=== PATIENT | female | born 1930 | race Caucasian/White ===

== ENCOUNTER 2020-07-25 23:56 | Emergency (ER) | payer OTHER ==
[2020-07-26 00:19] VITALS: BP 155/73; PULSE 72; TEMP 98.4; BMI 15.7
[2020-07-26] MEDS ORDERED: KETOROLAC TROMETHAMINE 30 MG/1 ML VIAL IVPUSH ONE (01:19)
[2020-07-26] MEDS ORDERED: KETOROLAC TROMETHAMINE 30 MG/1 ML VIAL ONE (01:20)
[2020-07-26 01:52] LABS: BASO % 0.8 % (0-2.0); EOS % 2.9 % (0-4.5); HEMATOCRIT 37.6 % (32.4-45.2); HEMOGLOBIN 12.4 GM/dL (10.7-15.3); MCH 29.9 pg (25.7-33.7); MEAN CELL VOLUME 90.7 fl (80-96); MEAN PLT VOLUME 11.3 fl (7.5-11.1); MONO % 15.3 % (3.8-10.2); PLATELET COUNT 132 K/MM3 (134-434); RBC 4.14 M/mm3 (3.60-5.2); RDW 14.7 % (11.6-15.6); WHITE BLOOD COUNT 4.7 K/mm3 (4.0-10.0)
[2020-07-26 01:57] LABS: EPI CELLS >36 /uL (0-25.1); HYALINE CASTS 0 /uL (0-3.1); URINE APPEARANCE Error; URINE BACTERIA 137 /uL (0-1359); URINE BILIRUBIN NEGATIVE (NEGATIVE); URINE COLOR YELLOW; URINE GLUCOSE (UA) NEGATIVE (NEGATIVE); URINE KETONE NEGATIVE (NEGATIVE); URINE LEUK ESTERASE 1+ (NEGATIVE); URINE NITRITE NEGATIVE (NEGATIVE); URINE PROTEIN NEGATIVE (NEGATIVE); URINE RBC 5 /uL (0-23.9); URINE WBC 39 /uL (0-25.8)
[2020-07-26 02:02] LABS: CHLORIDE 109 mmol/L (98-107); SODIUM 142 mmol/L (136-145)
[2020-07-26 02:04] LABS: CALCIUM 9.5 mg/dL (8.5-10.1)
[2020-07-26 02:06] LABS: ALBUMIN 3.2 g/dl (3.4-5.0); ANION GAP 7 MMOL/L (8-16); CO2 26 mmol/L (21-32); GLUCOSE,RANDOM 101 mg/dL (74-106); LIPASE 256 U/L (73-393)
[2020-07-26 02:09] LABS: BILIRUBIN,TOTAL 0.3 mg/dL (0.2-1); SGOT/AST 31 U/L (15-37); SGPT/ALT 38 U/L (13-61); TOT PROT 6.3 g/dl (6.4-8.2)
[2020-07-26 02:11] LABS: ALK PHOS 55 U/L (45-117)
[2020-07-26] MEDS ORDERED: NITROFURANTOIN MACROCRYSTAL 50 MG CAPSULE (FP) ONE (03:14)
[2020-07-26] MEDS ORDERED: NITROFURANTOIN MACROCRYSTAL 50 MG CAPSULE (FP) PO SCH (03:15)
== END 2020-07-26 08:02 | disposition home or self-care (01) ==
LOC: FER 23:56
PROC: 3E0333Z Introduction of Anti-inflammatory into Peripheral Vein, Percutaneous Approach (ICD-10-PCS; principal; 2020-07-25)
DX: M54.5 Low back pain (principal); N30.00 Acute cystitis without hematuria
CPT/HCPCS: 36415; 71045-TC-FY; 74176-TC; 80053; 81003; 82550; 83605; 83690; 84484; 85025; 87040; 87077; 87086; 93005; 99285-25

== ENCOUNTER 2020-10-15 14:49 | Emergency (ER) | payer OTHER, MEDICARE ==
[2020-10-15 15:03] VITALS: TEMP 97.7; BMI 23.3
[2020-10-15] MEDS ORDERED: METOCLOPRAMIDE HCL INJECTION 10 MG/2 ML VIAL IVPUSH ONE (15:08)
[2020-10-15] MEDS ORDERED: ACETAMINOPHEN 1000 MG/100 ML VIAL (NON FORMULARY) IVPB ONE (15:08)
[2020-10-15] MEDS ORDERED: ACETAMINOPHEN INJECTION 100 ML IVPB ONE (15:15)
[2020-10-15 15:45] LABS: BASO % 0.8 % (0-2.0); EOS % 1.9 % (0-4.5); HEMATOCRIT 36.9 % (32.4-45.2); HEMOGLOBIN 12.5 GM/dl (10.7-15.3); LYMPH % 26.4 % (8-40); MCH 30.6 pg (25.7-33.7); MCHC 33.8 g/dl (32.0-36.0); MEAN CELL VOLUME 90.4 fl (80-96); MEAN PLT VOLUME 10.5 fl (7.5-11.1); MONO % 9.8 % (3.8-10.2); NEUT % 61.1 % (42.8-82.8); PLATELET COUNT 121 10^3/uL (134-434); RBC 4.08 M/mm3 (3.60-5.2); RDW 13.9 % (11.6-15.6); WHITE BLOOD COUNT 5.4 K/mm3 (4.0-10.8)
[2020-10-15 15:51] LABS: ALBUMIN 3.5 g/dl (3.4-5.0); ALK PHOS 37 U/L (45-117); ANION GAP 12 MMOL/L (8-16); CALCIUM 8.8 mg/dl (8.5-10); CHLORIDE 104 mmol/L (98-107); CO2 22 mmol/L (21-32); CREATININE 0.7 mg/dl (0.55-1.3); GLUCOSE,RANDOM 138 mg/dl (74-106); SGOT/AST 18 U/L (15-37); SGPT/ALT 17 U/L (13-61); SODIUM 138 mmol/L (136-145); TOT PROT 6.2 g/dl (6.4-8.2)
[2020-10-15] MEDS ORDERED: METOCLOPRAMIDE HCL INJECTION 10 MG/2 ML VIAL ONE (15:51)
[2020-10-15 16:08] LABS: ACTIVATED PTT 29.9 SECONDS (25.2-36.5)
[2020-10-15 16:12] LABS: INR 0.99 (0.82-1.09); PROTHROMBIN TIME (PATIENT) 11.1 SEC (10.2-13.0)
[2020-10-15 18:06] VITALS: BP 132/75; PULSE 69
== END 2020-10-15 18:00 | disposition home or self-care (01) ==
LOC: FER 14:49
PROC: 3E0333Z Introduction of Anti-inflammatory into Peripheral Vein, Percutaneous Approach (ICD-10-PCS; principal; 2020-10-15)
PROC: 3E033GC Introduction of Other Therapeutic Substance into Peripheral Vein, Percutaneous Approach (ICD-10-PCS; 2020-10-15)
DX: R51.9 Headache, unspecified (principal); R11.2 Nausea with vomiting, unspecified
CPT/HCPCS: 36415; 70450-TC; 71045-TC-FY; 80053; 82550; 84484; 85025; 85610; 85730; 93005; 99285-25; C9803; J0131; U0003; U0005

== ENCOUNTER 2020-12-01 10:54 | Emergency (ER) | payer OTHER, MEDICARE ==
[2020-12-01 11:31] VITALS: TEMP 98.2; BMI 21.6
[2020-12-01] MEDS ORDERED: ACETAMINOPHEN 500 MG TABLET (FP) PO ONE (11:34)
[2020-12-01] MEDS ORDERED: ACETAMINOPHEN 500 MG TABLET (FP) ONE (11:35)
[2020-12-01] MEDS ORDERED: TIMOLOL 0.5% OPHTHALMIC SOL 5 ML BOTTLE OU ONE ×2 (13:00→17:40)
[2020-12-01] MEDS ORDERED: PILOCARPINE 2% OPHTHALMIC SOLUTION 15 ML BOTTLE OU ONE ×2 (13:01→17:41)
[2020-12-01] MEDS ORDERED: morphine CARPU-JECT 2 MG/1 ML DISP.SYRIN IVPUSH ONE (13:07)
[2020-12-01] MEDS ORDERED: ONDANSETRON 4 MG/2 ML VIAL IVPUSH ONE (13:07)
[2020-12-01] MEDS ORDERED: BRIMONIDINE TARTRATE 0.2% OPHTHALMIC 5 ML BOTTLE OU ONE ×2 (13:30→17:41)
[2020-12-01] MEDS ORDERED: LORazepam 0.5 MG TABLET PO ONE (17:11)
[2020-12-01] MEDS ORDERED: LORazepam 0.5 MG TABLET ONE (17:28)
[2020-12-01 17:52] VITALS: BP 158/88; PULSE 82
== END 2020-12-01 17:48 | disposition short-term general hospital (02) ==
LOC: FER 10:54
DX: H40.9 Unspecified glaucoma (principal)
CPT/HCPCS: 70450-TC; 99285-25; C9803; U0003; U0005